=== PATIENT | female | born 1955 | race Two or more races ===

== ENCOUNTER 2022-11-28 07:10 | Outpatient (CLI) | payer OTHER | END 2022-11-28 07:25 | disposition home or self-care (01) | LOC: MAMO-SONO 07:10 | PROVIDERS: ATTEND Obstetrics & Gynecology | DX: R10.2 Pelvic and perineal pain (principal); D25.9 Leiomyoma of uterus, unspecified; R19.09 Other intra-abdominal and pelvic swelling, mass and lump; N60.11 Diffuse cystic mastopathy of right breast; N60.12 Diffuse cystic mastopathy of left breast; Z12.31 Encounter for screening mammogram for malignant neoplasm of breast ==